=== PATIENT | male | born 1955 | race Caucasian/White ===

== ENCOUNTER 2016-07-27 02:07 | Emergency (ER) | payer BC, OTHER ==
[~2016-07-27] VITALS: Ht 170.2 cm; Wt 72.6 kg
--- NOTE | 2016-07-27 02:10 | NUR ---
Patient to ER bed 6 to gown for evaluation. Side rails up. Report given to Carol SUAREZ.
--- NOTE | 2016-07-27 02:14 | NUR ---
ER MD Ricardo at bedside for evaluation
[2016-07-27 02:15] VITALS: BP_SYST 162
--- NOTE | 2016-07-27 02:25 | NUR ---
Patient alert and oriented x 3. Pt came in the ER accompanied by spouse with a laceration on the back of his head about 3 cm long. Per spouse, pt drank a significant amount of alcohol and while walking to the car, pt lost his balance, fell backwards and hit his head. Denies dizziness, nausea or vomiting. No acute distress or SOB noted.
[2016-07-27] MEDS ORDERED: DIPH-TET-PERTUS Vaccine 0.5 ML VIAL (ADACEL) I.M. ONE (02:30)
[2016-07-27] MEDS ORDERED: LIDOCAINE/EPI 1% 1:100000 20 ML VIAL INJ ONE (02:30)
[2016-07-27] MEDS ORDERED: LIDOCAINE 1%, 20 ML MDV 20 ML ONE (02:37)
--- NOTE | 2016-07-27 03:40 | NUR ---
Patient resting comfortably. No acute distress or SOB noted at this time. at bedside.
[2016-07-27 04:40] VITALS: BP_SYST 149
--- NOTE | 2016-07-27 04:40 | NUR ---
Patient and patient's given written and verbal discharge instructions and verbalizes understanding. ER MD discussed with patient the results and treatment provided. Patient in stable condition. No acute distress or SOB noted upon discharge. ID arm band removed. No Rx given. Patient educated on pain management and to follow up with PMD. Pain Scale 0/10. Opportunity for questions provided and answered.
== END 2016-07-27 04:40 | disposition home or self-care (01) ==
LOC: SED 02:07
DX: S01.01XA Laceration without foreign body of scalp, initial encounter (principal); F10.129 Alcohol abuse with intoxication, unspecified; Z87.891 Personal history of nicotine dependence; W18.30XA Fall on same level, unspecified, initial encounter; Y93.89 Activity, other specified; Y92.89 Other specified places as the place of occurrence of the external cause; Y99.8 Other external cause status
CPT/HCPCS: 12002; 70450; 90471; 90715; 99284; J2001